=== PATIENT | female | born 1995 | race Caucasian/White ===

== ENCOUNTER 2016-12-02 14:20 | Emergency (ER) | payer BC, OTHER ==
[~2016-12-02] VITALS: Ht 160 cm; Wt 58.0 kg
[2016-12-02 14:27] VITALS: TEMP 36.8; Ht 160 cm; Wt 58.0 kg
--- NOTE | 2016-12-02 15:25 | EMERGENCY ROOM VISIT NOTE ---
History Report prepared by Demetrice: Warner Lloyd Under the Supervision of: Dr. Júnior Garcia M.D. First contact with patient: 15:11 Chief Complaint: ANXIETY Stated Complaint: NEAR SYNCOPE 3X PAST WEEK, THINKS ANXIETY History of Present Illness The patient is a 21 year old female who presents to the Emergency Room with complaints of anxiety that began earlier today. While the patient was at work, she began to feel like she was going to pass out. This occurred three times and has never happened before. She began to feel very anxious and began to worry about her near syncopal episodes. She has had a sinus infection for a few days, and has been taking Amoxicillin to combat it. She has been experiencing chills, rapid breathing, and numbness in her arms. She denies any sore throat, abdominal pain, melena, diarrhea, hematochezia, and urinary symptoms. She notes that she does not have an appetite. She does not take any medications for anxiety. She denies any past medical problems. She has not had her thyroid function checked. Her periods are starting to become irregular. She is not on control. Source of History: patient Onset: earlier today Position: other (global) Symptom Intensity: mild Quality: other (anxiety) Timing: other (decreasing) Associated Symptoms: + chills, + numbness, No abdominal pain, No diarrhea, No fevers, No hematochezia, No melena, No sorethroat, No urinary symptoms Note: She denies any post nasal drip. She has been breathing more rapidly. Review of Systems All systems have been listed, reviewed, and are negative other than those previously mentioned. Please see Additional Medical History Sheet. Past Medical & Surgical Medical Problems: (1) No Known Active Medical Problems Family History Cancer Heart disease Hypertension Social History Smoking Status: Current Every Day Smoker Alcohol Use: none Drug Use: none Marital Status: single Housing Status: lives with family Occupation Status: employed Current/Historical Medications Scheduled Multivitamin (Multivitamin), 1 TAB PO DAILY Probiotic Product (Probiotic), 1 TAB PO DAILY [Natural Supplements], 1 DOSE PO DAILY Scheduled PRN Lorazepam (Ativan), 1 MG PO Q6H PRN for anxiety Allergies Coded Allergies: No Known Allergies (Unverified , 12/02/16) Physical Exam Vital Signs Date Time Temp Pulse Resp B/P Pulse Ox O2 Delivery O2 Flow Rate FiO2 12/02/16 16:26 59 16 116/66 98 Room Air 12/02/16 14:27 36.8 78 16 122/80 98 Room Air Physical Exam GENERAL: Patient awake, alert, oriented x 3. Patient follows commands. Patient does not appear toxic. Patient is adequately hydrated and well- nourished. SKIN: No erythema, pallor, cyanosis or rash HEENT: Normal head, pupils equal, reactive to light and accommodation. Ears normal. Oral cavity and posterior pharynx appear normal. Neck: Without adenopathy. Thyroid not enlarged. No masses palpated. No tenderness over the maxillary or frontal sinuses LUNGS: Clear to auscultation. No wheezes, no rales, no rhonchi. HEART: No murmurs. No gallops. No rubs ABDOMEN: No masses, no rebound, no hepatomegaly or splenomegaly. EXTREMITIES: No signs of trauma. No pedal or pretibial edema. No calf or thigh tenderness. NEUROLOGIC: Cranial nerves II-XII within normal limits. No gross motor sensory function deficits. PSYCHIATRIC: Patient is awake alert and oriented. She is somewhat anxious now. She is not suicidal or homicidal. Medical Decision & Procedures Laboratory Results 12/02/16 15:40 12/02/16 15:40 Test 12/02/16 15:40 Red Blood Count 4.74 M/uL (4.2-5.4) Mean Corpuscular Volume 89.0 fL (80-100) Mean Corpuscular Hemoglobin 31.0 pg (25-34) Mean Corpuscular Hemoglobin Concent 34.8 g/dl (32-36) RDW Standard Deviation 39.6 fL (36.4-46.3) RDW Coefficient of Variation 12.2 % (11.5-14.5) Mean Platelet Volume 10.8 fL (7.4-10.4) Anion Gap 8.0 mmol/L (3-11) Est Creatinine Clear Calc Drug Dose 89.3 ml/min Estimated GFR () 118.6 Estimated GFR (Non- 102.4 BUN/Creatinine Ratio 10.6 (10-20) Calcium Level 9.5 mg/dl (8.5-10.1) Troponin I < 0.015 ng/ml (0-0.045) Thyroid Stimulating Hormone (TSH) 0.321 uIu/ml (0.300-4.500) Laboratory results as stated above per my review. ECG Indication: other (anxiety) Rate (beats per minute): 60 Rhythm: normal sinus Findings: no acute ischemic change, no ectopy ED Course 151: Past medical records reviewed. The patient was evaluated in room A4. A complete history and physical examination was performed. 1650: Upon reevaluation, the patient appeared to have improvement of her symptoms. I discussed today's findings with her. She verbalized agreement of the treatment plan. She was discharged home. Medical Decision Nurses notes reviewed. Medical history sheet reviewed. Differential diagnosis includes but is not limited to: Hyperventilation, anxiety, panic, metabolic disorder, arrhythmia, and thyroid disorder. The patient is here with reported panic attacks. Multiple labs were obtained. Please see above. Her thyroid function appears to be within normal range. Electrolytes are not out of range. She is not anemic. The patient will be given a small prescription for Ativan to be taken as needed. She was encouraged to follow-up with her family physician. The patient may need a long- term anxiolytic if symptoms persist. The patient was encouraged to stop Augmentin as it may be exacerbating her symptoms. And most likely she does not have a bacterial source for her sinus infection. Impression Primary Impression: Anxiety Additional Impression: Sinusitis Scribe Attestation The scribe's documentation has been prepared under my direction and personally reviewed by me in its entirety. I confirm that the note above accurately reflects all work, treatment, procedures, and medical decision making performed by me. Departure Information Dispostion Home / Self-Care Prescriptions Lorazepam (ATIVAN) 1 Mg Tab 1 MG PO Q6H Y for anxiety, #20 TAB Prov: Júnior Garcia M.D. 12/02/16 Referrals No Doctor, Assigned (PCP) Forms HOME CARE DOCUMENTATION FORM, IMPORTANT VISIT INFORMATION Patient Instructions ED Panic Attack, [facility] Additional Instructions Take 0.5 - 1mg of Ativan every 6 hours as needed for anxiety. Do not drive or operate machinery while taking Ativan. Follow-up with a family physician within the next 2 weeks. Problem Qualifiers
[2016-12-02] MEDS ORDERED: PROB1TAB16 PO (15:38)
[2016-12-02] MEDS ORDERED: NATURAL SUPPLEMENTS PO (15:38)
[2016-12-02] MEDS ORDERED: MULT-506 PO (15:38)
[2016-12-02 15:57] LABS: HEMATOCRIT 42.2 % (37-47); MEAN CORPUSCULAR HGB CONC 34.8 g/dl (32-36); MEAN PLATELET VOLUME 10.8 fL (7.4-10.4); PLATELET COUNT 209 K/uL (130-400); RED BLOOD COUNT 4.74 M/uL (4.2-5.4); WHITE BLOOD COUNT 6.33 K/uL (4.8-10.8)
[2016-12-02 16:14] LABS: BLOOD UREA NITROGEN 9 mg/dl (7-18); BUN/CREATININE RATIO 10.6 (10-20); CALCIUM 9.5 mg/dl (8.5-10.1); CARBON DIOXIDE 25 mmol/L (21-32); CHLORIDE 109 mmol/L (98-107); CREATININE 0.81 mg/dl (0.60-1.20); GLUCOSE 84 mg/dl (70-99); POTASSIUM 4.2 mmol/L (3.5-5.1); SODIUM 142 mmol/L (136-145)
[2016-12-02 16:25] LABS: THYROID STIMULATING HORMONE 0.321 uIu/ml (0.300-4.500)
[2016-12-02 16:26] VITALS: BP 116/66; PULSE 59; O2SAT 98
[2016-12-02] MEDS ORDERED: ATV/1 PO (16:45)
== END 2016-12-02 17:01 | disposition home or self-care (01) ==
LOC: C.EDB 14:22 → C.EDA 17:01
DX: F41.9 Anxiety disorder, unspecified (principal); J32.9 Chronic sinusitis, unspecified; F17.200 Nicotine dependence, unspecified, uncomplicated